=== PATIENT | male | born 1945 | race Caucasian/White ===

== ENCOUNTER 2017-04-09 20:42 | Emergency (ER) | payer MEDICARE, OTHER ==
--- NOTE | 2017-04-09 20:52 | ED.PDOC ---
History of Present Illness - General Chief Complaint: Cardiovascular Problem Stated Complaint: high blood pressure Time Seen by Provider: 04/09/17 20:49 Source: patient Exam Limitations: no limitations - History of Present Illness Initial Comments: Steve Dsouza 71 y/o male stated took his blood pressure tonight noted that it was high bp 166/101 and took it after 30 minute x 2 stating keeps going up.Denies headache, blurry vision,dizziness or chest pains.He takes blood pressure medication 2 x a day stating name starts with c. Timing/Duration: 1-3 hours Improving Factors: nothing Worsening Factors: nothing Associated Symptoms: denies symptoms Allergies/Adverse Reactions: Allergies NO KNOWN ALLERGY Allergy (Verified 06/11/16 23:55) Home Medications: Ambulatory Orders Alprazolam [Xanax] 1 mg PO PRN PRN 06/11/16 Bp Medication PO DAILY 06/11/16 Loperamide HCl [Imodium A-D] 2 mg PO Q4HR PRN #6 tab 06/11/16 Review of Systems - Review of Systems Constitutional: States: no symptoms reported EENTM: States: no symptoms reported Respiratory: States: no symptoms reported Cardiology: States: no symptoms reported Gastrointestinal/Abdominal: States: no symptoms reported Genitourinary: States: no symptoms reported Musculoskeletal: States: no symptoms reported Skin: States: no symptoms reported Neurological: States: no symptoms reported Endocrine: States: no symptoms reported Hematologic/Lymphatic: States: no symptoms reported Past Medical History (General) - Patient Medical History Hx Seizures: No Hx Stroke: No Hx Dementia: No Hx Asthma: No Hx of COPD: No Hx Cardiac Disorders: No Hx Congestive Heart Failure: No Hx Pacemaker: No Hx Hypertension: Yes Hx Thyroid Disease: No Hx Diabetes: No Hx Gastroesophageal Reflux: Yes Hx Renal Disease: No Hx Cancer: No Hx of HIV: No Hx Hepatitis C: No Hx MRSA: No Surgical History: no surgical history - Vaccination History Hx Tetanus, Diphtheria Vaccination: No Hx Influenza Vaccination: No Hx Pneumococcal Vaccination: No - Social History Hx Tobacco Use: Yes - 1ppd Years Tobacco Use: 50 Hx Chewing Tobacco Use: No Hx Alcohol Use: Yes - 5-6 bottles every other day Hx Substance Use: No Hx Substance Use Treatment: No Hx Depression: No Hx Physical Abuse: No Hx Emotional Abuse: No Hx Suspected Abuse: No - Activities of Daily Living Patient Lives Alone: No - family Grooming Ability: Independent Eating (Feeding) Ability: Independent Toileting Ability: Independent - Female History Patient : No Family Medical History - Family History Father Family History: Unknown Living Status: Hx Family;Other: Jemma Gehrigs disease-brother Physical Exam - Physical Exam General Appearance: Alert, No apparent distress Eye Exam: bilateral normal Ears, Nose, Throat: hearing grossly normal, normal ENT inspection, normal pharynx Neck: non-tender, full range of motion Respiratory: chest non-tender, lungs clear, normal breath sounds Cardiovascular/Chest: normal peripheral pulses, regular rate, rhythm, no murmur Peripheral Pulses: radial,right: 2+, radial,left: 2+ Gastrointestinal/Abdominal: normal bowel sounds, non tender, soft, no organomegaly Back Exam: normal inspection, no CVA tenderness Extremity: normal range of motion, non-tender, normal inspection Neurologic: no motor/sensory deficits, alert, normal mood/affect, oriented x 3 Skin Exam: normal color Progress - Results/Orders Results/Orders: BP 165/103 wants to go home denies any other symptoms. Departure - Departure Clinical Impression: Hypertension Qualifiers: Hypertension type: essential hypertension Qualified Code(s): I10 - Essential ( primary) hypertension Time of Disposition: 22:06 Disposition: Discharge to Home or Self Care Condition: Good Instructions: Medication May Reduce Heavy Drinking and Increase Abstinence in Alcoholics, How to Quit Smoking Referrals: Blanco Fagan MD [Primary Care Provider] - 1-2 Weeks Home Medications: Ambulatory Orders Alprazolam [Xanax] 1 mg PO PRN PRN 06/11/16 Bp Medication PO DAILY 06/11/16 Loperamide HCl [Imodium A-D] 2 mg PO Q4HR PRN #6 tab 06/11/16 Additional Instructions: RETURN TO EMERGENCY ROOM NEEDED;KEEP APPOINTMENT WITH PRIMARY MD NEXT WEEK; Aspirin 81 mg daily(baby aspirin);Increase blood pressure medicine to one tablet 3 x a day
[2017-04-09 20:54] VITALS: TEMP 98
[2017-04-09] MEDS ORDERED: cloNIDine HCL 0.1 MG TAB ONE (20:55)
[2017-04-09] MEDS ORDERED: cloNIDine HCL 0.1 MG TAB PO ONE (21:10)
[2017-04-09 21:34] VITALS: O2SAT 95
[2017-04-09 22:18] VITALS: BP 164/100
== END 2017-04-09 22:18 | disposition home or self-care (01) ==
LOC: ER 20:42
DX: I10 Essential (primary) hypertension (principal); F17.200 Nicotine dependence, unspecified, uncomplicated; K21.9 Gastro-esophageal reflux disease without esophagitis; Z79.899 Other long term (current) drug therapy

== ENCOUNTER → 2017-08-09 | Outpatient (CLI) | payer MEDICARE, OTHER ==
--- NOTE | 2017-08-11 07:47 | CT ---
EXAM DESCRIPTION: Chest w/o Contrast CLINICAL HISTORY: COPD COMPARISON: None. TECHNIQUE: Noncontrast transaxial CT images of the chest are obtained. This exam was performed according to our departmental dose-optimization program, which includes automated exposure control, adjustment of the mA and/or kV according to patient size and/or use of iterative reconstruction technique . FINDINGS: The heart shows mild coronary artery calcifications. Mild scattered calcified plaque of the thoracic aorta and great vessels is seen. No pathologically enlarged mediastinal, hilar, or axillary lymphadenopathy seen. Nonspecific 9 mm pretracheal lymph nodes are seen. No significant pleural or pericardial effusion is seen. Visualized portion of the upper abdomen shows no acute findings. Lungs are hyperinflated. There are mild centrilobular emphysematous changes seen. On image 71 there is a 4 mm noncalcified pulmonary nodule in the right upper lobe. There is a 5 to 6 mm noncalcified pulmonary nodule in the more anterior right upper lobe on image 79. Small 4 mm nodular density in the anterior right lower lobe on image 100 is seen. There are several peripheral less than 3 or 4 mm noncalcified pulmonary nodules in the left lung. Osseous structures show no aggressive bony lesions. Mild degenerative changes of the spine are seen. IMPRESSION: Mild centrilobular emphysematous changes to the chest are seen. Multiple nonspecific less than 6 mm pulmonary nodules are seen. Recommend follow-up CT imaging in one year to document long-term stability. Mild atherosclerotic disease. 2017 Fleischner Society Recommendations for Multiple Solid Lung Nodules Follow-Up base on size (average of long- and short-axis diameters). Use most suspicious nodule for followup. Nodule Size <6 mm Low-Risk Patient: No routine follow-up Nodule Size <6 mm High-Risk Patient: Optional CT at 12 months Nodule Size 6-8 mm Low-Risk Patient: CT at 3-[address] at 18-24 months Nodule Size 6-8 mm High-Risk Patient: CT at 3-6 months then at 18-24 months Nodule Size (mm) >8 Low-Risk Patient: CT at 3-6 months, then consider CT at 18-24 months Nodule Size (mm) >8 High-Risk Patient: CT at 3-6 months, then at 18-24 months Electronically signed by: Feliz Giordano MD 08/11/2017 7:46 AM CDT
== END | disposition home or self-care (01) ==
LOC: CT 08:41
PROVIDERS: ATTEND General Practice
DX: J44.9 Chronic obstructive pulmonary disease, unspecified (principal)

== ENCOUNTER 2018-01-22 09:53 | Emergency (ER) | payer MEDICARE, OTHER ==
[2018-01-22 10:17] VITALS: TEMP 97.8
[2018-01-22] MEDS ORDERED: ALBUTEROL SULFATE 2.5 MG/3 ML VIAL NEB ONE (10:28)
[2018-01-22] MEDS ORDERED: SODIUM CHLORIDE 0.9% 1000ML 1,000 ML IVS ONE (11:12)
[2018-01-22] MEDS ORDERED: ONDANSETRON ODT 8 MG TAB SL ONE (11:12)
[2018-01-22] MEDS ORDERED: ALUMINUM & MAGNESIUM HYDROXIDE 30 ML UD PO ONE (11:12)
--- NOTE | 2018-01-22 11:21 | RAD ---
EXAM DESCRIPTION: Chest 2 views CLINICAL HISTORY: dizziness COMPARISON: Radiograph of 12/21/2012. CT of August 09, 2017 TECHNIQUE: PA and lateral views of the chest FINDINGS: Lungs are stably aerated bilaterally. No consolidation nor pneumothorax nor pleural effusion in either lung. Cardiomediastinal contours are unremarkable in appearance. Thoracic bony structures grossly intact. IMPRESSION: No acute cardiopulmonary process. Electronically signed by: Wilber Whelan MD 01/22/2018 11:20 AM [employer]
[2018-01-22] MEDS ORDERED: THIAMINE HCL INJ 100 MG/ML VIAL ONE (12:06)
--- NOTE | 2018-01-22 12:19 | CT ---
CT OF ABDOMEN AND THE PELVIS WITH INTRAVENOUS CONTRAST CLINICAL HISTORY: elevated ddimer, nausea, increased lft, nl bnp COMPARISON: None TECHNIQUE: Routine CT protocol following intravenous administration of 100 mL Optiray 300 contrast. Oral contrast was not administered. Injury formations performed in coronal and sagittal planes. Imaging was performed utilizing automated exposure control for dose reduction. FINDINGS: LUNG BASES: Limited visualization demonstrate focal atelectasis or very early airspace disease in left lower lobe of lung. Mild hiatal hernia. ABDOMEN: Small and large bowel loops are normal in caliber without obstruction or obvious inflammation. Appendix is normal in appearance. No pneumatosis or intraperitoneal free air is identified. No abscess adjoining visualized bowel loops. Pronounced wall thickening in proximal to mid stomach. Diffuse fatty infiltration throughout liver without focal mass nor abnormal biliary distention. spleen, pancreas, and adrenal glands are unremarkable in appearance. Gallbladder is unremarkable in appearance.No obstructive uropathy nor calcific nephrolithiasis in either kidney. Abdominal aorta demonstrate saccular ectasia in the infrarenal region with maximal diameter of 2.7 cm. There is increased mural thrombus within the ectatic sac. Its major mesenteric branches and iliac arteries are patent without aneurysmal dilatation or flow limiting stenosis nor dissection. No concerning mesenteric or retroperitoneal lymphadenopathy. Lumbar spine demonstrate unremarkable alignment with multilevel degenerative changes PELVIS: Bladder is mildly distended with irregular wall thickening. Small bowel loops identified in enlarged left inguinal hernia without associated obstruction.. No concerning lymphadenopathy nor bony injury in the pelvis. IMPRESSION: 1. No bowel obstruction nor perforation nor joining abscess. Normal appendix. 2. Pronounced wall thickening along proximal to mid stomach of uncertain significance. Clinical correlation and possible endoscopic evaluation should be considered if there is concern of underlying gastric inflammation 3. Small bowel loops extend into and large left inguinal hernia without bowel obstruction. 2. Saccular abdominal aortic ectasia. Given its size, follow-up CT in five years is recommended to assess stability of this finding. Electronically signed by: Wilber Whelan MD 01/22/2018 12:03 PM [employer]
--- NOTE | 2018-01-22 13:42 | ED.PDOC ---
History of Present Illness - General Chief Complaint: General Stated Complaint: weakness, dizziness Time Seen by Provider: 01/22/18 09:57 Source: patient Exam Limitations: no limitations - History of Present Illness Initial Comments: The patient is a 72-year-old male emergency room secondary to 3 days of symptoms. The last couple of days he has had a mild gastritis with some very mild nausea and some mild intermittent diarrhea. No blood. No vomiting. No fever. This morning is feeling a little bit dizzy. The dizziness however did improve after we disimpacted his ear canals from the cerumen impaction. The patient does drink on a daily basis. No clinical signs of any DVT and no history of any DVT. No shortness of breath the patient does have questionable history of COPD. No productive cough. No rash. No real abdominal pain. Timing/Duration: unsure Severity: mild Improving Factors: nothing Worsening Factors: nothing Associated Symptoms: denies symptoms Allergies/Adverse Reactions: Allergies NO KNOWN ALLERGY Allergy (Verified 01/22/18 10:16) Home Medications: Ambulatory Orders Alprazolam [Xanax] 1 mg PO PRN PRN 06/11/16 Bp Medication PO DAILY 06/11/16 Loperamide HCl [Imodium A-D] 2 mg PO Q4HR PRN #6 tab 06/11/16 Review of Systems - Review of Systems Constitutional: States: malaise EENTM: States: no symptoms reported Respiratory: States: no symptoms reported Cardiology: States: no symptoms reported Gastrointestinal/Abdominal: States: diarrhea, nausea Genitourinary: States: no symptoms reported Musculoskeletal: States: no symptoms reported Skin: States: no symptoms reported Neurological: States: other - mild dizziness Endocrine: States: no symptoms reported Hematologic/Lymphatic: States: no symptoms reported All other Systems: No Change from Baseline Past Medical History (General) - Patient Medical History Hx Seizures: No Hx Stroke: No Hx Dementia: No Hx Asthma: No Hx of COPD: Yes Hx Cardiac Disorders: No Hx Congestive Heart Failure: No Hx Pacemaker: No Hx Hypertension: Yes Hx Thyroid Disease: No Hx Diabetes: No Hx Gastroesophageal Reflux: Yes Hx Renal Disease: No Hx Cancer: No Hx of HIV: No Hx Hepatitis C: No Hx MRSA: No Surgical History: no surgical history - Vaccination History Hx Tetanus, Diphtheria Vaccination: No Hx Influenza Vaccination: No Hx Pneumococcal Vaccination: No - Social History Hx Tobacco Use: Yes - 1ppd Hx Chewing Tobacco Use: No Hx Alcohol Use: Yes - 5-6 bottles every other day Hx Substance Use: No Hx Substance Use Treatment: No Hx Depression: No Hx Physical Abuse: No Hx Emotional Abuse: No Hx Suspected Abuse: No - Female History Patient : No Family Medical History - Family History Father Family History: Unknown Living Status: Hx Family;Other: Jemma Gehrigs disease-brother Physical Exam - Physical Exam General Appearance: Alert, Comfortable, No apparent distress Eye Exam: bilateral normal Ears, Nose, Throat: hearing grossly normal - mildly decreased light, normal pharynx Neck: non-tender, full range of motion, supple Respiratory: lungs clear, normal breath sounds, no respiratory distress, no accessory muscle use Cardiovascular/Chest: normal peripheral pulses, regular rate, rhythm, no edema Peripheral Pulses: radial,right: 2+, radial,left: 2+, dorsalis pedis,right: 2+, dorsalis pedis,left: 2+ Gastrointestinal/Abdominal: non tender, soft Rectal Exam: deferred Back Exam: normal inspection, no CVA tenderness, no vertebral tenderness Extremity: normal range of motion, non-tender, normal inspection, no pedal edema , normal capillary refill Neurologic: linesperson II-XII nml as tested, alert, normal mood/affect, oriented x 3 Skin Exam: normal color Comments: Vital Signs - 24 hr 01/22/18 01/22/18 09:57 10:46 Temperature 97.8 F Pulse Rate [ 96 H pulse ox] Respiratory 20 20 Rate Blood Pressure 137/95 [Left Arm] O2 Sat by Pulse 98 Oximetry Progress - Progress Progress: 01/22/18 13:42 the patient is a 72-year-old male presenting to the emergency room secondary to symptoms of dizziness and a gastroenteritis. Symptoms are mild. Dizziness seems to have improved with cerumen disimpaction of bilateral ear canals. He does need to wash his left ear in the shower daily to remove any residual earwax that is stuck up against the eardrum in the left ear. For the gastroenteritis the patient will be written for famotidine twice daily for the next month. Also the patient will be placed on ciprofloxacin which may help with the gastroenteritis but also for what is possibly a small urinary tract infection. He also needs to take thiamine 100 mg daily given his long-term alcohol intake to prevent neurological deterioration over time. The patient does have some evidence of fatty liver likely from the drinking on his CT scan of the abdomen, as well as a mild elevation of his liver function test on the blood work. This does need to be followed with his primary care doctor. Additionally he does have some mild saccular ectasia of the infrarenal aorta 2.7 cm with recommended follow-up by radiology within 5 years. He also does have some mild stomach wall thickening indicating the possibility of the gastritis. He also has some mild bladder wall thickening. He has a large left inguinal hernia noted on CT scan as well. No obstruction. CT scan of the chest done due to elevated d-dimer showed no evidence of any pulmonary embolus or significant aortic pathology of the chest. The patient has no clinical evidence of any DVT. The patient needs to keep himself well-hydrated. He needs to follow up with his primary care doctor later this week. ER warnings are given for any significant worsening. the patient is feeling better at time of discharge. Departure - Departure Clinical Impression: Gastroenteritis, Cystitis, Alcoholic liver disease Cerumen impaction Qualifiers: Laterality: bilateral Qualified Code(s): H61.23 - Impacted cerumen, bilateral Disposition: Discharge to Home or Self Care Condition: Fair Departure Forms: ED Discharge - Pt. Copy, Patient Portal Self Enrollment Instructions: Liver Disease, General (Alternative Therapy), DI for Bacterial Gastroenteritis -- Adult Diet: regular diet - minimize alcohol intake Activity: increase activity as tolerated Referrals: Blanco Fagan MD [Primary Care Provider] - 1-5 Days Home Medications: Ambulatory Orders Alprazolam [Xanax] 1 mg PO PRN PRN 06/11/16 Bp Medication PO DAILY 06/11/16 Loperamide HCl [Imodium A-D] 2 mg PO Q4HR PRN #6 tab 06/11/16 Additional Instructions: the patient is a 72-year-old male presenting to the emergency room secondary to symptoms of dizziness and a gastroenteritis. Symptoms are mild. Dizziness seems to have improved with cerumen disimpaction of bilateral ear canals. He does need to wash his left ear in the shower daily to remove any residual earwax that is stuck up against the eardrum in the left ear. For the gastroenteritis the patient will be written for famotidine twice daily for the next month. Also the patient will be placed on ciprofloxacin which may help with the gastroenteritis but also for what is possibly a small urinary tract infection. He also needs to take thiamine 100 mg daily given his long-term alcohol intake to prevent neurological deterioration over time. The patient does have some evidence of fatty liver likely from the drinking on his CT scan of the abdomen, as well as a mild elevation of his liver function test on the blood work. This does need to be followed with his primary care doctor. Additionally he does have some mild saccular ectasia of the infrarenal aorta 2.7 cm with recommended follow-up by radiology within 5 years. He also does have some mild stomach wall thickening indicating the possibility of the gastritis. He also has some mild bladder wall thickening. He has a large left inguinal hernia noted on CT scan as well. No obstruction. CT scan of the chest done due to elevated d-dimer showed no evidence of any pulmonary embolus or significant aortic pathology of the chest. The patient has no clinical evidence of any DVT. The patient needs to keep himself well-hydrated. He needs to follow up with his primary care doctor later this week. ER warnings are given for any significant worsening. the patient is feeling better at time of discharge.
[2018-01-22 14:05] VITALS: BP 153/96; O2SAT 98
[2018-01-23] MEDS ORDERED: THIAMINE HCL INJ 100 MG/ML VIAL IV ONE (11:12)
== END 2018-01-22 13:57 | disposition home or self-care (01) ==
LOC: ER 09:53
DX: K52.9 Noninfective gastroenteritis and colitis, unspecified (principal); H61.23 Impacted cerumen, bilateral; N30.90 Cystitis, unspecified without hematuria; K70.9 Alcoholic liver disease, unspecified; F17.200 Nicotine dependence, unspecified, uncomplicated
CPT/HCPCS: 36415; 69209; 71046; 71275; 74177; 80053; 81001; 82550; 82553; 83735; 83880; 84484; 85025; 85379; 85610; 85730; 87040; 87086; J3411; J7030

== ENCOUNTER 2018-01-24 16:48 | Emergency (ER) | payer MEDICARE, OTHER ==
--- NOTE | 2018-01-24 17:06 | ED.PDOC ---
History of Present Illness - General Chief Complaint: Neuro Symptoms/Deficits Stated Complaint: nausea, dizziness Time Seen by Provider: 01/24/18 16:59 Source: patient Exam Limitations: no limitations - History of Present Illness Initial Comments: Steve Dsouza 72 y/o male stated he still continue to have feeling of nausea and dizziness for the last 3 days.He was seen initially here on 01/22/18 and had extensive work up ct -chest/abdomen,CXR-which were all negative except for elevated LFT due to his chronic alcoholism.Admits drank alcoholic beverage before coming here. Timing/Duration: 1 week Severity: moderate Improving Factors: nothing Worsening Factors: eating Associated Symptoms: loss of appetite Allergies/Adverse Reactions: Allergies NO KNOWN ALLERGY Allergy (Verified 01/24/18 17:03) Home Medications: Ambulatory Orders Alprazolam [Xanax] 1 mg PO PRN PRN 06/11/16 Bp Medication PO DAILY 06/11/16 Loperamide HCl [Imodium A-D] 2 mg PO Q4HR PRN #6 tab 06/11/16 Baclofen 20 mg PO BID #20 tab 01/24/18 Clonidine HCl 0.1 mg PO BID #30 tab 01/24/18 Review of Systems - Review of Systems Constitutional: States: no symptoms reported EENTM: States: no symptoms reported Respiratory: States: no symptoms reported Cardiology: States: no symptoms reported Gastrointestinal/Abdominal: States: nausea Genitourinary: States: no symptoms reported Musculoskeletal: States: no symptoms reported Skin: States: no symptoms reported Neurological: States: other - dizziness Past Medical History (General) - Patient Medical History Hx Seizures: No Hx Stroke: No Hx Dementia: No Hx Asthma: No Hx of COPD: Yes Hx Cardiac Disorders: No Hx Congestive Heart Failure: No Hx Pacemaker: No Hx Hypertension: Yes Hx Thyroid Disease: No Hx Diabetes: No Hx Gastroesophageal Reflux: Yes Hx Renal Disease: No Hx Cancer: No Hx of HIV: No Hx Hepatitis C: No Hx MRSA: No Surgical History: no surgical history - Vaccination History Hx Tetanus, Diphtheria Vaccination: No Hx Influenza Vaccination: No Hx Pneumococcal Vaccination: No - Social History Hx Tobacco Use: Yes - 1ppd Hx Chewing Tobacco Use: No Hx Alcohol Use: Yes - 5-6 bottles every other day Hx Substance Use: No Hx Substance Use Treatment: No Hx Depression: No Hx Physical Abuse: No Hx Emotional Abuse: No Hx Suspected Abuse: No - Female History Patient : No Family Medical History - Family History Father Family History: Unknown Living Status: Hx Family;Other: Jemma Gehrigs disease-brother Physical Exam - Physical Exam General Appearance: Alert, Comfortable, No apparent distress Eye Exam: bilateral normal Ears, Nose, Throat: hearing grossly normal, normal ENT inspection Neck: non-tender, full range of motion, supple Respiratory: chest non-tender, lungs clear, normal breath sounds Cardiovascular/Chest: normal peripheral pulses, regular rate, rhythm, no murmur Gastrointestinal/Abdominal: normal bowel sounds, non tender, soft, no organomegaly Extremity: normal range of motion, non-tender, no pedal edema, no calf tenderness Neurologic: alert, oriented x 3 Skin Exam: normal color, warm/dry Progress - Progress Progress: 01/24/18 19:48 Vital Signs 01/24/18 01/24/18 16:55 17:09 Temperature 97.4 F L Pulse Rate [ 80 pulse ox] Respiratory 20 20 Rate Blood Pressure 180/111 [Left Arm] O2 Sat by Pulse 99 Oximetry 01/24/18 20:14 Declined to have head CT done wants to leave;Explained blood test result that he has elevated 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 01/24/18 20:19 No longer feeling dizzy or nauseated. - Results/Orders Results/Orders: 01/24/18 17:48 Multiple Vitamin Inj [MVI Injectable] 10 ml Sodium Chloride 0.9% 1000ML [Ns 1000 ml] 1,000 ml IVPB ONCE 01/24/18 18:00 EKG STAT 01/24/18 19:42 Magnesium Sulfate Premix 2Gm 2 gm Premix Bag 1 bag IVPB ONCE Laboratory Results - last 24 hr 01/24/18 01/24/18 01/24/18 17:48 18:06 18:06 WBC 7.6 RBC 4.34 L Hgb 14.9 Hct 43.5 MCV 100.2 H MCH 34.3 H MCHC 34.4 RDW 12.8 Plt Count 187 MPV 7.9 Absolute Neuts (auto) 4.90 Absolute Lymphs (auto) 1.60 Absolute Monos (auto) 0.80 Absolute Eos (auto) 0.20 Absolute Basos (auto) 0.10 Neutrophils % 64.9 Lymphocytes % 20.7 Monocytes % 10.6 H Eosinophils % 3.0 Basophils % 0.8 PT 10.0 INR 0.880 PTT (SP) 27.0 Sodium 132 L Potassium 3.8 Chloride 95 L Carbon Dioxide 28 Anion Gap 12.8 BUN 8 Creatinine 0.74 BUN/Creatinine Ratio 10.8 Random Glucose 89 Serum Osmolality 262.3 L Lactic Acid Calcium 9.9 Magnesium 1.7 L Total Bilirubin 1.1 H D Direct Bilirubin 0.2 Indirect Bilirubin 0.9 H AST 100 H ALT 100 H Alkaline Phosphatase 90 Creatine Kinase 508 H* D CK-MB (CK-2) 4.3 CK-MB (CK-2) % 0.85 Troponin I < 0.02 Serum Total Protein 7.0 Albumin 3.6 Lipase 38 Urine Color Urine Appearance Urine pH Ur Specific [place] Urine Protein Urine Glucose (UA) Urine Ketones Urine Blood Urine Nitrite Urine Bilirubin Urine Urobilinogen Ur Leukocyte Esterase Urine RBC Urine WBC Ur Epithelial Cells Urine Bacteria Urine Opiates Screen Negative Urine Barbiturates Negative Ur Phencyclidine Scrn Negative U Amphetamin/Meth Scrn Negative U Benzodiazepines Scrn Negative U Cocaine Metab Screen Negative U Cannabinoids Screen Negative Ethyl Alcohol 12.10 01/24/18 01/24/18 18:06 19:46 WBC RBC Hgb Hct MCV MCH MCHC RDW Plt Count MPV Absolute Neuts (auto) Absolute Lymphs (auto) Absolute Monos (auto) Absolute Eos (auto) Absolute Basos (auto) Neutrophils % Lymphocytes % Monocytes % Eosinophils % Basophils % PT INR PTT (SP) Sodium Potassium Chloride Carbon Dioxide Anion Gap BUN Creatinine BUN/Creatinine Ratio Random Glucose Serum Osmolality Lactic Acid 1.5 Calcium Magnesium Total Bilirubin Direct Bilirubin Indirect Bilirubin AST ALT Alkaline Phosphatase Creatine Kinase CK-MB (CK-2) CK-MB (CK-2) % Troponin I Serum Total Protein Albumin Lipase Urine Color Yellow Urine Appearance Clear Urine pH 7.0 Ur Specific [place] 1.010 Urine Protein Negative Urine Glucose (UA) Negative Urine Ketones Negative Urine Blood Negative Urine Nitrite Negative Urine Bilirubin Negative Urine Urobilinogen 0.2 Ur Leukocyte Esterase Negative Urine RBC 0 Urine WBC 0-1 Ur Epithelial Cells 0-1 Urine Bacteria Rare Urine Opiates Screen Urine Barbiturates Ur Phencyclidine Scrn U Amphetamin/Meth Scrn U Benzodiazepines Scrn U Cocaine Metab Screen U Cannabinoids Screen Ethyl Alcohol Departure - Departure Clinical Impression: Cirrhosis, alcoholic Qualifiers: Ascites presence: without ascites Qualified Code(s): K70.30 - Alcoholic cirrhosis of liver without ascites Alcohol dependence Qualifiers: Substance use status: uncomplicated Qualified Code(s): F10.20 - Alcohol dependence, uncomplicated Time of Disposition: 22:35 Disposition: Discharge to Home or Self Care Condition: Fair Departure Forms: ED Discharge - Pt. Copy, Patient Portal Self Enrollment Instructions: DI for Alcohol Abuse and Alcoholism, Alcohol Abuse and Alcoholism , Alcoholism (Alternative Therapy) Referrals: Blanco Fagan MD [Primary Care Provider] - 1-2 Weeks Prescriptions: Baclofen 20 mg PO BID #20 tab Clonidine HCl 0.1 mg PO BID #30 tab Home Medications: Ambulatory Orders Alprazolam [Xanax] 1 mg PO PRN PRN 06/11/16 Bp Medication PO DAILY 06/11/16 Loperamide HCl [Imodium A-D] 2 mg PO Q4HR PRN #6 tab 06/11/16 Baclofen 20 mg PO BID #20 tab 01/24/18 Clonidine HCl 0.1 mg PO BID #30 tab 01/24/18 Additional Instructions: Need to take B-COMPLEX VITAMINS DAILY;Follow up with primary Md for referral to alcohol rehab in am 01/25/2018
[2018-01-24] MEDS ORDERED: MULTIPLE VITAMIN INJ 10 ML, THIAMINE HCL INJ 100 MG in SODIUM CHLORIDE 0.9% 1000ML 1,00... IVS ONE (17:48)
[2018-01-24] MEDS ORDERED: MULTIPLE VITAMIN INJ 10 ML in SODIUM CHLORIDE 0.9% 1000ML 1,000 ML IVPB ONE (17:48)
[2018-01-24] MEDS ORDERED: PROMETHAZINE HCL INJ 25 MG/ML VIAL IM ONE (17:49)
[2018-01-24] MEDS ORDERED: DEXAMETHASONE INJ 4 MG/ML VIAL IV ONE (17:49)
[2018-01-24] MEDS ORDERED: PANTOPRAZOLE SODIUM IV 40 MG VIAL IV ONE (17:49)
[2018-01-24] MEDS ORDERED: THIAMINE HCL INJ 100 MG/ML VIAL ONE (18:15)
[2018-01-24] MEDS ORDERED: MULTIPLE VITAMIN 10 ML VIAL ONE (18:15)
[2018-01-24] MEDS ORDERED: SODIUM CHLORIDE 0.9% 1000ML 1,000 ML ONE (18:15)
[2018-01-24] MEDS ORDERED: MAGNESIUM SULFATE PREMIX 2GM 2 GM in PREMIX BAG 1 BAG IVPB ONE (19:42)
[2018-01-24] MEDS ORDERED: MAGNESIUM SULFATE PREMIX 2GM 50 ML IVPB ONE (19:52)
[2018-01-24] MEDS ORDERED: cloNIDine HCL 0.1 MG TAB PO ONE (20:18)
[2018-01-24] MEDS ORDERED: BACLOFEN 10 MG TAB PO ONE (20:18)
[2018-01-24 21:58] VITALS: O2SAT 98
[2018-01-24 22:49] VITALS: BP 148/89
[2018-01-24 22:50] VITALS: TEMP 97.9
== END 2018-01-24 22:50 | disposition home or self-care (01) ==
LOC: ER 16:48
DX: F10.229 Alcohol dependence with intoxication, unspecified (principal); K70.30 Alcoholic cirrhosis of liver without ascites; Y90.0 Blood alcohol level of less than 20 mg/100 ml; J44.9 Chronic obstructive pulmonary disease, unspecified; I10 Essential (primary) hypertension; F17.200 Nicotine dependence, unspecified, uncomplicated; K21.9 Gastro-esophageal reflux disease without esophagitis
CPT/HCPCS: 36415; 80048; 80076; 80307; 80320; 81001; 82550; 82553; 83605; 83690; 84484; 85025; 85610; 85730; 93005; J1100; J3411; J3475; J7030